=== PATIENT | female | born 1995 | race Caucasian/White ===

== ENCOUNTER 2018-08-16 13:08 | Emergency (ER) | payer MEDICAID, OTHER ==
[~2018-08-16] VITALS: Ht 162.6 cm; Wt 88.4 kg
[~2018-08-16 13:08] MED LIST: no meds
[2018-08-16 13:20] VITALS: BP 114/58; PULSE 70; RESP 19; Ht 162.6 cm; Wt 88.4 kg
[2018-08-16] MEDS ORDERED: CEPH-443 PO (17:19)
--- NOTE | 2018-08-16 19:28 | ERD ---
ER Documentation Chief Complaint Chief Complaint vaginal bleeding - lmp 06/01/18 HPI 22-year-old female patient with no significant past medical history is a G1, P0 presents to the ED complaining of vaginal spotting in her . States her last menstruation was on June 01, 2018. Reports that she was getting treated for urinary tract infection, with Macrobid, finished a course of 7 days. Denies any current dysuria, urgency, frequency. Denies any fever, chills, nausea, vomiting, abdominal pain, chest pain, shortness of breath. ROS All systems reviewed and are negative except as per history of present illness. Medications Home Meds Active Scripts Cephalexin* (Keflex*) 500 Mg Capsule, 500 MG PO QID for 7 Days, CAP Prov:GERMAIN MCDONOUGH PA-C 08/16/18 Reported Medications [no meds] No Conflict Check 09/03/11 Allergies Allergies: Coded Allergies: No Known Allergy (Unverified , 09/03/11) PMhx/Soc History of Surgery: No Anesthesia Reaction: No Hx Neurological Disorder: No Hx Respiratory Disorders: No Hx Cardiac Disorders: No Hx Psychiatric Problems: Yes (ANXIETY) Hx Miscellaneous Medical Probl: No Hx Alcohol Use: No Hx Substance Use: No Hx Tobacco Use: No Smoking Status: Never smoker FmHx Family History: No diabetes, No coronary disease Physical Exam Vitals Vital Signs Date Temp Pulse Resp B/P (MAP) Pulse Ox O2 O2 Flow FiO2 Time Delivery Rate 08/16/18 97.2 70 19 114/58 97 13:20 (76) Physical Exam Const: [id number], well-nourished. In no acute distress. Head: Atraumatic, normocephalic Eyes: Normal Conjunctiva without injection. No purulent discharge. ENT: Normal external ear, nose. Moist oropharynx without tonsillar exudates. Non-erythematous pharynx. Uvula midline. No drooling. No trismus. Neck: No cervical midline tenderness. Full range of motion. No meningismus. No cervical lymphadenopathy. No JVD. Resp: Clear to auscultation bilaterally. No wheezing, rhonchi, rales, or crackles. No accessory muscle use. No retractions. Cardio: Regular rate and rhythm. No murmurs, rubs or gallops. Abd: Soft, nontender, non distended. Normal bowel sounds. No palpable masses. No rebound tenderness. No guarding. Negative McBurney's point. Negative psoas sign. Negative obturator sign. Skin: No petechiae or rashes Back: No midline tenderness. No CVA tenderness. Ext: No cyanosis, or edema. Neur: Awake and alert. Normal gait. Normal coordination. Psych: Normal Mood and Affect Result Diagram: 08/16/18 1529 Results 24 hrs Laboratory Tests Test 08/16/18 15:29 08/16/18 15:30 08/16/18 15:34 White Blood Count 12.5 10^3/ul Red Blood Count 4.73 10^6/ul Hemoglobin 13.8 g/dl Hematocrit 40.5 % Mean Corpuscular Volume 85.6 fl Mean Corpuscular Hemoglobin 29.2 pg Mean Corpuscular 34.1 g/dl Hemoglobin Concent Red Cell Distribution Width 13.0 % Platelet Count 288 10^3/UL Mean Platelet Volume 9.6 fl Immature Granulocytes % 0.600 % Neutrophils % 79.2 % Lymphocytes % 15.0 % Monocytes % 3.9 % Eosinophils % 1.0 % Basophils % 0.3 % Nucleated Red Blood Cells % 0.0 /100WBC Immature Granulocytes # 0.080 10^3/ul Neutrophils # 9.8 10^3/ul Lymphocytes # 1.9 10^3/ul Monocytes # 0.5 10^3/ul Eosinophils # 0.1 10^3/ul Basophils # 0.0 10^3/ul Nucleated Red Blood Cells # 0.0 10^3/ul Beta HCG, Quantitative 816570.0 mIU/ml Urine Color YELLOW Urine Clarity CLOUDY Urine pH 5.0 Urine Specific [place] 1.027 Urine Ketones NEGATIVE mg/dL Urine Nitrite NEGATIVE mg/dL Urine Bilirubin NEGATIVE mg/dL Urine Urobilinogen NEGATIVE mg/dL Urine Leukocyte Esterase 2+ Estephania/ul Urine Microscopic RBC 8 /HPF Urine Microscopic WBC 8 /HPF Urine Squamous Epithelial Cells FEW /HPF Urine Bacteria FEW /HPF Urine Mucus MANY /HPF Urine Hemoglobin NEGATIVE mg/dL Urine Glucose NEGATIVE mg/dL Urine Total Protein NEGATIVE mg/dl POC Beta HCG, Qualitative POSITIVE Procedures/MDM 22-year-old female patient with no significant past medical history presents ED complaining of vaginal bleeding in her urination. Patient is afebrile and nontoxic-appearing. An ultrasound, beta-hCG, CBC, type and RH, UA was ordered to evaluate patient. CBC: No evidence of severe infection or anemia Urine: No elevation in nitrites, 2+ leukocyte esterase, hematuria. Patient will be treated for urinary tract infection. Rh: B positive No indication for Rhogam at this time. beta Hc IMPRESSION: Twin live intrauterine gestation of 15 weeks and 5 days and 16 weeks and 0 days by ultrasound criteria. Patient has a twin , 15 weeks, 5 days as well as 16 weeks noted on her ultrasound. Patient's bleeding symptoms have stabilized while in the department. Low suspicion for symptomatic anemia, ectopic , sepsis, PID, appendicitis, ovarian torsion, tubo-ovarian abscess, surgical abdomen, or other emergent conditions. Patient was educated that there is a risk for threatened . Patient to follow up with [facility] in 2 days for further evaluation and treatment. Patient is to return sooner to the ED for any worsening symptoms. Patient's questions were answered. Patient understood and agreed with discharge plan. Departure Diagnosis: Primary Impression: Vaginal bleeding in patient at less than 20 weeks ges... Condition: Stable Patient Instructions: Urinary Tract Infections in Women, : Your Second Trimester Changes Referrals: [facility] ([facility]) COMM[facility]ITY CLINICS YOU HAVE RECEIVED A MEDICAL SCREENING EXAM AND THE RESULTS INDICATE THAT YOU DO NOT HAVE A CONDITION THAT REQUIRES URGENT TREATMENT IN THE EMERGENCY DEPARTMENT. FURTHER EVALUATION AND TREATMENT OF YOUR CONDITION CAN WAIT UNTIL YOU ARE SEEN IN YOUR DOCTORS OFFICE WITHIN THE NEXT 1-2 DAYS. IT IS YOUR RESPONSIBILITY TO MAKE AN APPOINTMENT FOR FOLOW-UP CARE. IF YOU HAVE A PRIMARY DOCTOR --you should call your primary doctor and schedule an appointment IF YOU DO NOT HAVE A PRIMARY DOCTOR YOU CAN CALL OUR PHYSICIAN REFERRAL HOTLINE AT IF YOU CAN NOT AFFORD TO SEE A PHYSICIAN YOU CAN CHOSE FROM THE FOLLOWING [facility] CLINICS [id number] [id number] [facility] [address] [facility]. [facility] [address] [facility] [address] [facility] [address] [facility]. [facility] [address] [facility]. [facility] YOU HAVE RECEIVED A MEDICAL SCREENING EXAM AND THE RESULTS INDICATE THAT YOU DO NOT HAVE A CONDITION THAT REQUIRES URGENT TREATMENT IN THE EMERGENCY DEPARTMENT. FURTHER EVALUATION AND TREATMENT OF YOUR CONDITION CAN WAIT UNTIL YOU ARE SEEN IN YOUR DOCTORS OFFICE WITHIN THE NEXT 1-2 DAYS. IT IS YOUR RESPONSIBILITY TO MAKE AN APPOINTMENT FOR FOLOW-UP CARE. IF YOU HAVE A PRIMARY DOCTOR --you should call your primary doctor and schedule and appointment IF YOU DO NOT HAVE A PRIMARY DOCTOR YOU CAN CALL OUR PHYSICIAN REFERRAL HOTLINE AT . IF YOU CAN NOT AFFORD TO SEE A PHYSICIAN YOU CAN CHOSE FROM THE FOLLOWING [facility] INSTITUTIONS: [facility] [address] [place] [address] [facility] [address] [place], [place] [id number] [place] [address] [address] [place] [address] [facility] Additional Instructions: Call your primary care doctor TOMORROW for an appointment during the next 2-3 days.See the doctor sooner or return here if your condition worsens before your appointment time. GERMAIN MCDONOUGH PA-C August 16, 2018 19:28
== END 2018-08-16 17:42 | disposition home or self-care (01) ==
LOC: FTE 13:08
DX: O20.9 Hemorrhage in early pregnancy, unspecified (principal); Z3A.16 16 weeks gestation of pregnancy
CPT/HCPCS: 36415; 76805; 81001; 81025; 84702; 85025; 86900; 86901

== ENCOUNTER 2018-12-01 22:16 | Outpatient (CLI) | payer OTHER ==
[~2018-12-01] VITALS: Ht 154.9 cm; Wt 104.1 kg
[~2018-12-01 22:16] MED LIST changes: +CALC600T5 PO; +CEPH-443 PO; +FAMO40TA5 PO; +FER325 PO; +FOLI0.4T2 PO; +ONDA4TAB8 PO; +PREN1TAB13 ORAL; +PREN1TAB13 PO
[2018-12-01 22:30] VITALS: BP 114/77; PULSE 96; RESP 18; Ht 154.9 cm; Wt 104.1 kg
[2018-12-02] MEDS ORDERED: CEFTRIAXONE 1 GM INJ IM ONE (01:30)
== END 2018-12-02 02:03 | disposition home or self-care (01) ==
LOC: OBT 22:16 → L-D 22:16 → OBT 12-02 02:03
PROVIDERS: ATTEND Specialist
DX: O30.003 Twin pregnancy, unspecified number of placenta and unspecified number of amniotic sacs, third trimester (principal); O23.43 Unspecified infection of urinary tract in pregnancy, third trimester; Z3A.31 31 weeks gestation of pregnancy
CPT/HCPCS: 76815; 76816; 76817; 76818; 81001; 82731; 87086; J0696; 96372; G0463